=== PATIENT | male | born 1980 | race African-American/Black ===

== ENCOUNTER 2019-02-06 21:59 | Observation (INO) ==
[2019-02-07 01:28] LABS: PT Patient Result 10.6 SECS
[2019-02-07 01:41] LABS: Albumin 3.4 G/DL (3.4-5.0); Basophils % 0.3 % (0.0-0.8); Bilirubin,Total 0.5 MG/DL (0.2-1.0); Calcium 9.1 MG/DL (8.5-10.1); Eosinophils # 0.1 10*3/uL (0.0-0.87); Eosinophils % 1.3 % (0.00-10.9); Hematocrit 38.9 VOL% (42.0-52.0); Hemoglobin 12.1 GM/DL (14.0-18.0); Immature Granulocytes % 0.2 %; Immature Granulocytes Absolute 0.02 #; Lymphocytes # 2.9 10*3/uL (1.4-4.0); Lymphocytes % 31.5 % (21.2-54.2); Mean Corpuscular HGB Conc 31.1 GM/DL (32-36); Mean Corpuscular Volume 86.3 FL (87-102); Mean Platelet Volume 9.5 FL (9.6-12.0); Monocytes % 6.7 % (1.7-12.7); Osmolality,Calculated 282.3 MOS/KG (273-304); Platelet Count 257 T/CUMM (130-400); Red Blood Count 4.51 MC/CUMM (3.8-5.5); Red Cell Distribution Width 13.6 % (9.3-17.3); Total Protein 7.8 G/DL (6.4-8.3); White Blood Count 9.1 T/CUMM (4-12)
[2019-02-07] MEDS ORDERED: ENOXAPARIN 150 MG/ML SYRINGE SUBCUT STA (02:21)
[2019-02-07] MEDS ORDERED: ENOXAPARIN 80 MG/0.8 ML SYRINGE SUBCUT STA (02:39)
[2019-02-07] MEDS ORDERED: ZALEPLON 5 MG CAPSULE PO PRN (03:20)
[2019-02-07] MEDS ORDERED: ACETAMINOPHEN 325 MG TABLET PO PRN (03:20)
[2019-02-07] MEDS ORDERED: DOCUSATE SODIUM 100 MG CAPSULE PO PRN (03:20)
[2019-02-07] MEDS ORDERED: diphenhydrAMINE CAP 25 MG CAPSULE PO PRN (03:20)
[2019-02-07] MEDS ORDERED: ONDANSETRON 4 MG/2 ML VIAL IV PRN (03:20)
[2019-02-07 06:49] LABS: Basophils % 0.2 % (0.0-0.8); Eosinophils # 0.2 10*3/uL (0.0-0.87); Eosinophils % 1.9 % (0.00-10.9); Hematocrit 40.1 VOL% (42.0-52.0); Hemoglobin 12.7 GM/DL (14.0-18.0); Immature Granulocytes % 0.2 %; Immature Granulocytes Absolute 0.02 #; Lymphocytes # 2.8 10*3/uL (1.4-4.0); Lymphocytes % 33.2 % (21.2-54.2); Mean Corpuscular HGB Conc 31.7 GM/DL (32-36); Mean Corpuscular Volume 86.4 FL (87-102); Mean Platelet Volume 9.1 FL (9.6-12.0); Monocytes % 7.4 % (1.7-12.7); Neutrophils % 57.1 % (38.7-73.9); Platelet Count 252 T/CUMM (130-400); Red Blood Count 4.64 MC/CUMM (3.8-5.5); Red Cell Distribution Width 13.7 % (9.3-17.3); White Blood Count 8.3 T/CUMM (4-12)
[2019-02-07] MEDS ORDERED: hydrALAZINE 20 MG/1 ML VIAL IV PRN (07:09)
[2019-02-07 07:18] LABS: Calcium 8.9 MG/DL (8.5-10.1); Osmolality,Calculated 279.4 MOS/KG (273-304)
[2019-02-07] MEDS ORDERED: PANTOPRAZOLE 40 MG TABLET PO SCH (09:00)
[2019-02-07] MEDS ORDERED: LISINOPRIL 5 MG TABLET PO SCH (09:00)
[2019-02-07] MEDS ORDERED: TAMSULOSIN 0.4 MG CAPSULE PO SCH (09:00)
[2019-02-07] MEDS ORDERED: NEBIVOLOL 5 MG TABLET PO SCH (09:00)
[2019-02-07] MEDS ORDERED: ENOXAPARIN 80 MG/0.8 ML SYRINGE SUBCUT SCH (13:00)
[2019-02-07] MEDS ORDERED: MAGNESIUM SULF RIDER 4 GM in PREMIX 1 EACH IV PRN (13:36)
[2019-02-07] MEDS ORDERED: MAGNESIUM SULF RIDER 2 GM in PREMIX 1 EACH IV PRN (13:36)
[2019-02-07 15:22] VITALS: BP 168/109
== END 2019-02-07 16:38 | disposition home or self-care (01) ==
LOC: N.EDINP 21:59 → N.ED 21:59 → SUATTDRO 02-07 03:20 → N.2E 02-07 05:13
PROVIDERS: ADMIT Internal Medicine; ATTEND Family Medicine